=== PATIENT | male | born 1960 | race Caucasian/White ===

== ENCOUNTER 2019-10-09 18:33 | Emergency (ER) | payer OTHER ==
[~2019-10-09] VITALS: Ht 172.7 cm; Wt 88.0 kg
[~2019-10-09 18:33] MED LIST: LEVSOD125 PO; Multiple Vitam1 EAC1 PO; Prinivil10 MG PO
[2019-10-09] MEDS ORDERED: LEVSOD137 PO (22:24)
== END 2019-10-09 23:06 | disposition home or self-care (01) ==
LOC: ER 18:33
DX: S81.012A Laceration without foreign body, left knee, initial encounter (principal); E03.9 Hypothyroidism, unspecified; Z23 Encounter for immunization; Z79.899 Other long term (current) drug therapy; W26.8XXA Contact with other sharp object(s), not elsewhere classified, initial encounter
CPT/HCPCS: 12032; 73562-LT; 90471; 90714; 99283-25